=== PATIENT | male | born 1935 | race Caucasian/White ===

== ENCOUNTER → 2016-06-14 | Outpatient (CLI) | payer MEDICARE, BC ==
[~2016-06-14] MED LIST: ACET325T51 PO; DOCU100C PO; FERR-67 PO; FINA5TAB40 PO; GABA-336 PO; MULT-81 PO; PRIM50TA23 PO; SOLI10TA5 PO; TAMS0.4C46 PO; TRAM50TA4 PO; VITA-144 PO; [UNRECOGNIZED DRUG - OTHER] PO
--- NOTE | 2016-06-14 15:07 | DI ---
Indication: ITS.REASON: M25.561 PAIN IN RIGHT KNEE PROCEDURE: KNEE RIGHT 3 VIEWS: Encounter: Initial Comparison: February 08, 2014 Findings: Extended totally prosthesis appears intact. No acute fracture or dislocation. No evidence of hardware loosening or failure. Impression: No acute fracture. Stable appearance of the right knee. .
== END ==
LOC: IMA 14:35
PROVIDERS: ATTEND Family Medicine
DX: M25.561 Pain in right knee (principal); Z96.651 Presence of right artificial knee joint